=== PATIENT | female | born 1965 | race Caucasian/White ===

== ENCOUNTER 2018-01-01 13:29 | Emergency (ER) | payer MEDICARE, OTHER ==
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
[2018-01-01] MEDS ORDERED: HYDROcodone/APAP 10-325MG 1 EACH TAB PO ONE (15:10)
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
[2018-01-01 15:36] VITALS: BP 176/97; PULSE 91; RESP 16; TEMP 97.3
== END 2018-01-01 15:41 | disposition home or self-care (01) ==
LOC: EC 13:29
DX: S40.022A Contusion of left upper arm, initial encounter (principal); M25.562 Pain in left knee; M25.552 Pain in left hip; M54.2 Cervicalgia; M06.9 Rheumatoid arthritis, unspecified; E11.9 Type 2 diabetes mellitus without complications; E07.9 Disorder of thyroid, unspecified; F32.9 Major depressive disorder, single episode, unspecified; F17.200 Nicotine dependence, unspecified, uncomplicated; Z86.14 Personal history of Methicillin resistant Staphylococcus aureus infection; Z98.890 Other specified postprocedural states; Z79.52 Long term (current) use of systemic steroids; Z79.84 Long term (current) use of oral hypoglycemic drugs; Z79.899 Other long term (current) drug therapy; Z88.8 Allergy status to other drugs, medicaments and biological substances; Z91.048 Other nonmedicinal substance allergy status; V43.52XA Car driver injured in collision with other type car in traffic accident, initial encounter; Y92.89 Other specified places as the place of occurrence of the external cause
CPT/HCPCS: 72050; 72170; 99284

== ENCOUNTER 2018-11-10 00:01 | Emergency (ER) | payer MEDICARE, OTHER ==
[2018-11-10 00:09] VITALS: BP 158/99; PULSE 94; RESP 18; TEMP 99.4
[2018-11-10] MEDS ORDERED: HYDROmorphone 1 MG/ML 1 ML SYRINGE IM STA (01:19)
[2018-11-10] MEDS ORDERED: methylPREDNISolone SOD SUCCI 125 MG/2 ML VIAL IM ONE (01:19)
[2018-11-10] MEDS ORDERED: KETOROLAC 30 MG/ML 1 ML VIAL IM STA (01:19)
--- NOTE | 2018-11-10 01:21 | ED ---
Extremity Problem HPI - General Source: patient Mode of arrival: wheelchair Limitations: no limitations <Carolyne Walden - Last Filed: 11/10/18 04:22> <Aysha Gutierrez - Last Filed: 11/10/18 07:25> - General Chief complaint: Extremity Problem,Nontraumatic Stated complaint: Rheumatoid flare-up Time Seen by Provider: 11/10/18 00:47 - History of Present Illness Initial comments: 53-year-old female patient presents to the emergency department today for evaluation of rheumatoid arthritis flare. Patient states that for the last couple of days she's had increased pain and swelling all of her joints. Patient denies any fever or chills. States she is not currently taking any medications for rheumatoid arthritis. Patient states she has been taking half a tablet unremarkable at home which is not helping her. Patient states she is unable sleep related to the pain. She denies any rash or redness over the joints. Patient denies any recent rash, fever, chills, shortness breath, chest pain, abdominal pain, nausea, vomiting, diarrhea, constipation, back pain, numbness, tingling, dizziness, weakness, hematuria, dysuria, urinary urgency, urinary frequency, headache, visual changes, or any other complaints. (Carolyne Walden) - Related Data Home Medications Medication Instructions Recorded Confirmed predniSONE 20 mg PO DAILY 08/07/14 01/01/18 HYDROcodone/APAP 10-325MG [Saxe 1 tab PO Q6H PRN 11/01/14 01/01/18 10-325] Ibuprofen [Motrin] 800 mg PO Q6HR PRN 11/01/14 01/01/18 metFORMIN HCL [Glucophage] 500 mg PO BID 11/01/14 01/01/18 Atorvastatin Calcium [Lipitor] 20 mg PO DAILY 01/01/18 01/01/18 Cholecalciferol [Vitamin D3] 2,000 unit PO DAILY 01/01/18 01/01/18 Dextroamphetamine/Amphetamine 20 mg PO BID 01/01/18 01/01/18 [Adderall] Etanercept [Enbrel Mini] 50 mg SQ FR 01/01/18 01/01/18 Levothyroxine Sodium [Synthroid] 175 mcg PO DAILY 01/01/18 01/01/18 Magnesium 200 mg PO DAILY 01/01/18 01/01/18 Previous Rx's Medication Instructions Recorded Ibuprofen [Motrin] 600 mg PO Q8HR PRN #30 tab 11/10/18 predniSONE 50 mg PO DAILY #5 tablet 11/10/18 Allergies Allergy/AdvReac Type Severity Reaction Status Date / Time infliximab [From Remicade] Allergy Anaphylaxis Verified 11/10/18 00:09 TAPE AdvReac Rash/Hives Uncoded 11/10/18 00:09 Review of Systems ROS Other: All systems not noted in ROS Statement are negative. <Carolyne Walden - Last Filed: 11/10/18 04:22> ROS Other: All systems not noted in ROS Statement are negative. <Aysha Gutierrez - Last Filed: 11/10/18 07:25> ROS Statement: Those systems with pertinent positive or pertinent negative responses have been documented in the HPI. Past Medical History Past Medical History: Diabetes Mellitus, Rheumatoid Arthritis (RA), Thyroid Disorder Additional Past Medical History / Comment(s): Chronic steroid use secondary to RA, Back pain History of Any Multi-Drug Resistant Organisms: MRSA Date of last positivie culture/infection: 11/01/2014 MDRO Source:: GROIN Past Surgical History: Section, Orthopedic Surgery, Tonsillectomy Additional Past Surgical History / Comment(s): I&D of perirectal abscess, I&D of groin abscess, multiple arthroscopies of the wrist and ankles Past Anesthesia/Blood Transfusion Reactions: No Reported Reaction Past Psychological History: Depression Smoking Status: Current every day smoker Past Alcohol Use History: Occasional Past Drug Use History: None Reported - Past Family History Father Family Medical History: Chest Pain / Angina, Diabetes Mellitus, Myocardial Infarction ([place]), Osteoarthritis (OA), Rheumatoid Arthritis (RA), Thyroid Disorder Additional Family Medical History / Comment(s): HYPOTHYROID, GOUT, SKIN CA Mother Family Medical History: Dialysis, Hypertension, Renal Disease, Thyroid Disorder Additional Family Medical History / Comment(s): HYPOTHYROID, AAA, <Carolyne Walden - Last Filed: 11/10/18 04:22> General Exam Limitations: no limitations General appearance: alert, in no apparent distress, other (This is a well- developed, well-nourished adult female patient in no acute distress. Vital signs upon presentation are temperature 99.4F, pulse 94, respirations 18, blood pressure 150/99, pulse ox 99% on room air.) Respiratory exam: Present: normal lung sounds bilaterally. Absent: respiratory distress, wheezes, rales, rhonchi, stridor Cardiovascular Exam: Present: regular rate, normal rhythm, normal heart sounds. Absent: systolic murmur, diastolic murmur, rubs, gallop, clicks Extremities exam: Present: full ROM, normal capillary refill, joint swelling (generalized), other (no joint erythema or warmth). Absent: normal inspection, tenderness, pedal edema, calf tenderness Neurological exam: Present: alert, oriented X3, CN II-XII intact Psychiatric exam: Present: normal affect, normal mood Skin exam: Present: warm, dry, intact, normal color. Absent: rash <Carolyne Walden - Last Filed: 11/10/18 04:22> Course Vital Signs 11/10/18 00:06 Temperature 99.4 F Pulse Rate 94 Respiratory 18 Rate Blood Pressure 158/99 O2 Sat by Pulse 99 Oximetry Medical Decision Making <Carolyne Walden - Last Filed: 11/10/18 04:22> <Aysha Gutierrez - Last Filed: 11/10/18 07:25> - Medical Decision Making 53-year-old female patient presents to the emergency department today for evaluation of rheumatoid arthritis flareup. Patient is complaining of swollen and sore joints. Physical examination does reveal mild joint swelling generalized. No erythema or warmth over the joints. Patient is afebrile. Patient will be treated with anti-inflammatory medication and steroids. She states instructed follow up with her primary care physician for recheck or sooner as possible. Return parameters discussed in detail. She verbalizes understanding and agrees with this plan. (Carolyne Walden) I was available for consultation in the emergency department. The history and physical exam were done by the midlevel provider. I was consulted for this patient's care. I reviewed the case with the midlevel provider and based on their presentation of the patient, I agree with the assessment, medical decision making and plan of care as documented. (Aysha Gutierrez) Disposition Is patient prescribed a controlled substance at d/c from ED?: No Time of Disposition: 01:21 <Carolyne Walden - Last Filed: 11/10/18 04:22> <Aysha Gutierrez P - Last Filed: 11/10/18 07:25> Clinical Impression: Joint pain Disposition: HOME SELF-CARE Condition: Good Instructions (If sedation given, give patient instructions): Arthralgia (ED) Additional Instructions: Take medications as directed. Take medications with meals. Follow-up with your primary care physician for recheck as soon as possible. Return to the emergency department immediately for any new, worsening, or concerning symptoms. Prescriptions: Ibuprofen [Motrin] 600 mg PO Q8HR PRN #30 tab PRN Reason: Pain predniSONE 50 mg PO DAILY #5 tablet Referrals: Addison Cabrera MD [Primary Care Provider] - 1-2 days
== END 2018-11-10 01:47 | disposition home or self-care (01) ==
LOC: EC 00:01
DX: M25.50 Pain in unspecified joint (principal); M25.40 Effusion, unspecified joint; M06.9 Rheumatoid arthritis, unspecified; E11.9 Type 2 diabetes mellitus without complications; E07.9 Disorder of thyroid, unspecified; F32.9 Major depressive disorder, single episode, unspecified; F17.200 Nicotine dependence, unspecified, uncomplicated; Z86.14 Personal history of Methicillin resistant Staphylococcus aureus infection; Z98.890 Other specified postprocedural states; Z79.52 Long term (current) use of systemic steroids; Z79.84 Long term (current) use of oral hypoglycemic drugs; Z79.890 Hormone replacement therapy; Z79.899 Other long term (current) drug therapy; Z88.8 Allergy status to other drugs, medicaments and biological substances; Z91.048 Other nonmedicinal substance allergy status
CPT/HCPCS: 96372; 99283

== ENCOUNTER 2019-04-12 12:24 | Emergency (ER) | payer MEDICARE, OTHER ==
[2019-04-12 12:29] VITALS: RESP 18; TEMP 97.7
[2019-04-12] MEDS ORDERED: ASPIRIN 81 MG PO STA (12:38)
[2019-04-12] MEDS ORDERED: KETOROLAC 30 MG/ML 1 ML VIAL IVP STA (12:38)
[2019-04-12] MEDS ORDERED: IPRATROPIUM-ALBUTEROL 3 ML NEB INHALATION STA (12:39)
--- NOTE | 2019-04-12 13:00 | ED ---
Chest Pain HPI - General Chief Complaint: Chest Pain Stated Complaint: Chest pain Time Seen by Provider: 04/12/19 12:32 Source: patient, family, RN notes reviewed Mode of arrival: wheelchair Limitations: no limitations - History of Present Illness Initial Comments: This is a 53-year-old female history of rheumatoid arthritis who presents with complaints of chest pain. She states is also associated with shortness of breath does get worse with supine positioning she states she feels tightness. She has no known history of heart or lung disease though she is a smoker. No fevers chills nausea vomiting sweats cough or other symptoms he points to her lower sternal area and xiphoid region as the area pain. She states is moderate in severity at its worse and currently MD Complaint: chest pain - Related Data Home Medications Medication Instructions Recorded Confirmed HYDROcodone/APAP 10-325MG [Kennard 1 tab PO TID 11/01/14 04/12/19 10-325] metFORMIN HCL [Glucophage] 500 mg PO BID 11/01/14 04/12/19 Atorvastatin Calcium [Lipitor] 20 mg PO DAILY 01/01/18 04/12/19 Dextroamphetamine/Amphetamine 20 mg PO DAILY 01/01/18 04/12/19 [Adderall] Levothyroxine Sodium [Synthroid] 175 mcg PO DAILY 01/01/18 04/12/19 Tofacitinib Citrate [Xeljanz Xr] 11 mg PO DAILY 04/12/19 04/12/19 Previous Rx's Medication Instructions Recorded methylPREDNISolone Dose Pack 4 mg PO DIRECTED #21 package 04/12/19 [Medrol Dose Pack] Allergies Allergy/AdvReac Type Severity Reaction Status Date / Time infliximab [From Remicade] Allergy Anaphylaxis Verified 04/12/19 13:05 TAPE Allergy Rash/Hives Uncoded 04/12/19 13:07 Review of Systems ROS Statement: Those systems with pertinent positive or pertinent negative responses have been documented in the HPI. ROS Other: All systems not noted in ROS Statement are negative. EKG Findings - EKG Results: EKG: interpreted by DK POSEY (Sinus rhythm rate is 76. Interval 162 QRS duration 90 QT since QTC 394/[address]-T wave changes as compared with an EKG dated 08/07/14), normal axis, normal QRS, normal ST/T, no acute changes Past Medical History Past Medical History: Diabetes Mellitus, Rheumatoid Arthritis (RA), Thyroid Disorder Additional Past Medical History / Comment(s): Chronic steroid use secondary to RA, Back pain History of Any Multi-Drug Resistant Organisms: MRSA Date of last positivie culture/infection: 11/01/2014 MDRO Source:: GROIN Past Surgical History: Section, Orthopedic Surgery, Tonsillectomy Additional Past Surgical History / Comment(s): I&D of perirectal abscess, I&D of groin abscess, multiple arthroscopies of the wrist and ankles Past Anesthesia/Blood Transfusion Reactions: No Reported Reaction Past Psychological History: Depression Smoking Status: Current every day smoker Past Alcohol Use History: None Reported Past Drug Use History: Marijuana - Past Family History Father Family Medical History: Chest Pain / Angina, Diabetes Mellitus, Myocardial Infarction ([place]), Osteoarthritis (OA), Rheumatoid Arthritis (RA), Thyroid Disorder Additional Family Medical History / Comment(s): HYPOTHYROID, GOUT, SKIN CA Mother Family Medical History: Dialysis, Hypertension, Renal Disease, Thyroid Disorder Additional Family Medical History / Comment(s): HYPOTHYROID, AAA, General Exam - General Exam Comments Initial Comments: This is a well-developed well-nourished awake alert oriented 3 female Limitations: no limitations General appearance: alert, anxious Head exam: Present: atraumatic, normocephalic, normal inspection Eye exam: Present: normal appearance, PERRL, EOMI. Absent: scleral icterus, conjunctival injection, periorbital swelling ENT exam: Present: normal exam, mucous membranes moist Neck exam: Present: normal inspection, full ROM, other (No stridor JVD or bruits). Absent: tenderness, meningismus, lymphadenopathy Respiratory exam: Present: chest wall tenderness (Reproducible tenderness palpation along the xiphoid and lower costal sternal margins bilaterally no step-off or crepitation), decreased breath sounds. Absent: respiratory distress, wheezes, rales, rhonchi, stridor Cardiovascular Exam: Present: regular rate, normal rhythm, normal heart sounds. Absent: systolic murmur, diastolic murmur, rubs, gallop, clicks GI/Abdominal exam: Present: soft, normal bowel sounds. Absent: distended, tenderness, guarding, rebound, rigid, bruit, pulsatile mass Extremities exam: Present: normal inspection, full ROM, normal capillary refill. Absent: tenderness, pedal edema, joint swelling, calf tenderness Back exam: Present: normal inspection Neurological exam: Present: alert, oriented X3, CN II-XII intact Psychiatric exam: Present: normal affect, normal mood Skin exam: Present: warm, dry, intact, normal color. 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 She will be discharged we did have a discussion regarding the findings patient's consistent with chest wall syndrome/costochondritis, xiphoid Disposition Clinical Impression: Costochondritis, Chest wall syndrome, Xiphoidalgia, Bronchospasm, Smoking Disposition: HOME SELF-CARE Condition: Good Instructions (If sedation given, give patient instructions): Costochondritis (ED), Bronchospasm (ED), How to Stop Smoking (ED) Prescriptions: methylPREDNISolone Dose Pack [Medrol Dose Pack] 4 mg PO DIRECTED #21 package Is patient prescribed a controlled substance at d/c from ED?: No Referrals: Marcel Kenyon MD [Primary Care Provider] - 1-2 days
[2019-04-12 13:25] LABS: Basophils % (A) 1 %; Eosinophils # (A) 0.2 k/uL (0-0.7); Eosinophils % (A) 2 %; HCT 41.4 % (34.0-46.0); HGB 13.8 gm/dL (11.4-16.0); Lymphocytes # (A) 2.4 k/uL (1.0-4.8); Lymphocytes % (A) 29 %; MCH 28.5 pg (25.0-35.0); MCHC 33.5 g/dL (31.0-37.0); MCV 85.3 fL (80.0-100.0); Monocytes # (A) 0.4 k/uL (0-1.0); Monocytes % (A) 4 %; Neutrophils # (A) 5.1 k/uL (1.3-7.7); Neutrophils % (A) 63 %; Platelet Count 332 k/uL (150-450); RBC 4.85 m/uL (3.80-5.40); RDW 13.5 % (11.5-15.5); WBC 8.1 k/uL (3.8-10.6)
[2019-04-12 13:36] LABS: ALT 38 U/L (9-52); AST 22 U/L (14-36); African American GFR (CKD) >90 (>60 ml/min/1.73 sqM); Albumin 4.1 g/dL (3.5-5.0); Alkaline Phosphatase 140 U/L (38-126); Anion Gap 7 mmol/L; Blood Urea Nitrogen 19 mg/dL (7-17); Calcium 9.7 mg/dL (8.4-10.2); Carbon Dioxide 26 mmol/L (22-30); Chloride 109 mmol/L (98-107); Creatine Kinase 28 U/L (30-135); Glucose 169 mg/dL (74-99); Magnesium 2.1 mg/dL (1.6-2.3); Potassium 4.1 mmol/L (3.5-5.1); Sodium 142 mmol/L (137-145); Total Bilirubin 0.2 mg/dL (0.2-1.3); Total Protein 7.2 g/dL (6.3-8.2)
[2019-04-12 13:41] LABS: INR 0.8 (<1.2); Partial Thromboplastin Time 23.1 sec (22.0-30.0); Prothrombin Time 9.4 sec (9.0-12.0)
--- NOTE | 2019-04-12 13:43 | XR ---
EXAMINATION TYPE: XR chest 2V DATE OF EXAM: 04/12/2019 COMPARISON: Chest x-ray August 07, 2014. HISTORY: Chest pain and shortness of breath for 4 days. TECHNIQUE: Frontal and lateral views of the chest are obtained. FINDINGS: Overlying EKG leads are seen. There is no focal air space opacity, pleural effusion, or pne umothorax seen. The cardiac silhouette size is within normal limits. The osseous structures are in tact. IMPRESSION: No acute cardiopulmonary process. No significant change from prior.
[2019-04-12 13:52] VITALS: BP 140/87
[2019-04-12 13:54] VITALS: PULSE 70
[2019-04-12 13:56] LABS: D-Dimer 0.71 mg/L FEU (<0.60)
--- NOTE | 2019-04-12 14:40 | CT ---
EXAMINATION TYPE: CT angio chest DATE OF EXAM: 04/12/2019 COMPARISON: NONE HISTORY: Chest pain and shortness of breath, elevated d-dimer CT DLP: 489.3 mGycm. Automated Exposure Control for Dose Reduction was Utilized. CONTRAST: CTA scan of the thorax is performed with IV Contrast, patient injected with 100 mL of Isovue 300, pul monary embolism protocol. MIP Images are created on CT scanner and reviewed. FINDINGS: LUNGS: The lungs are grossly clear, there is no concerning parenchymal mass or nodule identified. T here is no pleural effusion or pneumothorax seen. The tracheobronchial tree is patent. MEDIASTINUM: There is satisfactory enhancement of the pulmonary artery and its branches, there is no CT evidence for pulmonary embolism. There are no greater than 1 cm hilar or mediastinal lymph nodes. No cardiomegaly or pericardial effusion is seen. Coronary artery calcification is present which is noted worker for underlying coronary artery disease. Moderate eccentric noncalcified plaque left sub clavian artery causing stenosis under 50% axial image 21 for reference. OTHER: Hemangioma involving the T9 vertebra is seen. IMPRESSION: No CT evidence for acute pulmonary embolism. No suspicious acute pulmonary process.
== END 2019-04-12 15:50 | disposition home or self-care (01) ==
LOC: EC 12:24
DX: M94.0 Chondrocostal junction syndrome [Tietze] (principal); J98.01 Acute bronchospasm; E11.9 Type 2 diabetes mellitus without complications; M06.9 Rheumatoid arthritis, unspecified; E07.9 Disorder of thyroid, unspecified; F17.200 Nicotine dependence, unspecified, uncomplicated; Z86.14 Personal history of Methicillin resistant Staphylococcus aureus infection; Z82.49 Family history of ischemic heart disease and other diseases of the circulatory system; Z71.6 Tobacco abuse counseling; Z79.891 Long term (current) use of opiate analgesic; Z79.84 Long term (current) use of oral hypoglycemic drugs; Z79.890 Hormone replacement therapy; Z79.899 Other long term (current) drug therapy; Z88.1 Allergy status to other antibiotic agents; Z91.048 Other nonmedicinal substance allergy status
CPT/HCPCS: 36415; 94640; 93005; 85379; 83880; 80053; 82550; 83690; 83735; 84484; 85025; 85610; 85730; 71046; 71275; 99285; 99406; 96374; J1885; Q9967

== ENCOUNTER → 2019-09-14 | Outpatient (CLI) | payer MEDICARE, OTHER | END | disposition home or self-care (01) | LOC: LABWHC1 09:22 | PROVIDERS: ATTEND Internal Medicine Endocrinology, Diabetes & Metabolism | DX: E03.8 Other specified hypothyroidism (principal) | CPT/HCPCS: 36415; 84443 ==

== ENCOUNTER → 2020-03-15 | Outpatient (CLI) | payer MEDICARE, OTHER ==
--- NOTE | 2020-03-16 08:00 | MR ---
EXAMINATION TYPE: MR lumbar spine wo con DATE OF EXAM: 03/15/2020 COMPARISON: NONE HISTORY: LBP, LLE radic x 2 mos. Left-sided sciatica for order. TECHNIQUE: Multiplanar, multisequence imaging of the lumbar spine is performed without IV contrast. FINDINGS: There is slight levoconvex scoliotic curvature centered at L3 level. Sagittal images of the lumbar spine show vertebral body heights to appear satisfactory. There is slight grade 1 retrolisthe sis L2 on L3 sagittal images. There is multilevel disc desiccation. There is moderate to advanced dis c space narrowing L4-L5 level. There is additional mild to moderate multilevel disc space narrowing w ith relative sparing of L2-L3 level. Vacuum disc phenomenon noted L5-S1 level. There is mild to moder ate anterior spurring and Modic type II endplate changes at the inferior L4-L5 level. There is additi onal mild to moderate multilevel anterior spurring. The conus medullaris is normal in position and s ignal ending at T12-L1 disc space. Axial images show the T12-L1 and L1-L2 disc spaces to appear within normal limits. Axial images at the L2-L3 level show spondylolisthesis with right paracentral disc protrusion mildly effacing the anterior thecal sac. There is mild facet degenerative changes bilaterally. Bilateral scott roforamina are patent. Axial images at the L3-L4 level show [id number] broad disc bulge mildly effacing anterior theca l sac. There is mild/moderate facet degenerative changes and ligament flavum hypertrophy patient post er lateral thecal sac. Bilateral neural foramina are patent. Axial images at the L4-L5 level show mild/moderate facet degenerative changes bilaterally. There is m ild broad disc bulge minimally effacing the anterior thecal sac. Bilateral neural foramina remain pat ent. Axial images at the L5-S1 level show mild to moderate facet degenerative changes bilaterally. There i s focal central with left paracentral and foraminal disc protrusion component. This effaces the centr al left S1 nerve on axial image 4. Spinal canal is preserved. There is additional mild left-sided inf erior neural foraminal narrowing. Right-sided neural foramina is patent. Several of the exiting nerve roots appear to have well-defined vertical increased T1 and T2 signal yeung ggesting chronic splitting. Finding at multiple levels bilaterally suggests this is not acute finding . Etiology not entirely certain. There is a 3.0 cm thin-walled simple cyst medially in the left kidne y axial image 25 noted IMPRESSION: Multilevel degenerative changes in the lumbar spine as detailed above. Attention to the L 5-S1 level where eccentric disc herniation encroaches on the central left S1 nerve likely accounting for patient's clinical symptoms.
== END | disposition home or self-care (01) ==
LOC: RADMRIMAIN 21:30
PROVIDERS: ATTEND Internal Medicine Rheumatology
DX: M51.17 Intervertebral disc disorders with radiculopathy, lumbosacral region (principal); M47.27 Other spondylosis with radiculopathy, lumbosacral region; M47.26 Other spondylosis with radiculopathy, lumbar region
CPT/HCPCS: 72148